=== PATIENT | female | born 1970 ===

== ENCOUNTER 2021-02-19 16:36 | Emergency (ER) | payer MEDICARE, SELFPAY ==
--- NOTE | ~2021-02-19 | XR_ITS ---
EXAMINATION: XR chest 2V DATE: 02/19/2021 17:52 INDICATION: Fever TECHNIQUE: PA and lateral views of the chest are obtained. COMPARISON: None available FINDINGS: The lungs are free of acute opacities. There is no pleural effusion or pneumothorax. The ca rdiomediastinal silhouette is normal. There is mild thoracic spondylosis. IMPRESSION: 1. No acute cardiopulmonary abnormality. Reviewed, dictated and finalized at location A.
--- NOTE | ~2021-02-19 | CT_ITS ---
EXAMINATION: CT brain wo con INDICATION: Fever and headache COMPARISON: None TECHNIQUE: Standard unenhanced head CT. The dose-length product (DLP) was 605.33 mGy-cm. The mA was a djusted according to patient size. Iterative reconstruction technique was employed. FINDINGS: There is no intracranial hemorrhage, acute infarction, or abnormal mass lesion. The ventric les are normal. There is no abnormal mass effect or midline shift. The [place]-white matter differentiat ion is normal. The basal cisterns are patent. The orbits are normal. There is mild mucosal thickening of the paranasal sinuses. IMPRESSION: 1. No acute intracranial abnormality. Reviewed, dictated and finalized at location A.
[2021-02-19 16:39] VITALS: BP 150/80; PULSE 110; RESP 18; TEMP 36.4; O2SAT 97
[2021-02-19 16:54] LABS: Basophils Absolute Auto 0.1 K/mm3 (0.0-0.1); Basophils Percent Auto 0.5 % (0.2-1.2); Eosinophils Absolute Auto 0.2 K/mm3 (0-0.3); Eosinophils Percent Auto 1.6 % (0-4.4); Hematocrit 44.4 % (37.0-47.0); Hemoglobin 15.2 g/dL (12.0-15.0); Immature Granulocyte Absolute 0.05 K/mm3 (0.00-0.031); Immature Granulocyte Percent A 0.3 % (0-0.5); Lymphocytes Absolute Auto 2.73 K/mm3 (0.9-3.2); Lymphocytes Percent Auto 18.4 % (18.3-44.2); Mean Corpuscular HGB Conc 34.2 g/dl (32-36); Mean Corpuscular Hemoglobin 31.7 pg (26-34); Mean Corpuscular Volume 92.7 fl (80-100); Mean Platelet Volume 9.4 fl (7.4-10.4); Monocytes Absolute Auto 0.8 K/mm3 (0.1-0.6); Monocytes Percent Auto 5.6 % (2.6-8.5); Neutrophils Absolute Auto 10.9 K/mm3 (1.3-6.7); Neutrophils Percent Auto 73.6 % (45.5-73.1); Platelet Count Result 306 k/mm3 (150-375); Red Blood Count 4.79 M/mm3 (4.2-5.4); White Blood Count 14.8 K/mm3 (4.5-10.0)
[2021-02-19 17:04] LABS: Alanine Aminotransferase 24 U/L (4-35); Alkaline Phosphatase 85 U/L (38-126); Anion Gap 12 mmol/L (8-16); Aspartate Amino Transferase 29 U/L (14-36); Bilirubin,Total 0.4 mg/dL (0.2-1.3); Blood Urea Nitrogen 12 mg/dL (7-17); Calcium 9.4 mg/dL (8.4-10.2); Carbon Dioxide 25 mmol/L (22-30); Chloride 105 mmol/L (98-107); Estimated CRCL calculation 80 ml/min; Estimated Glomerular Filt Rate > 60; Glucose 116 mg/dL (65-110); Potassium 3.7 mmol/L (3.4-5.0); Sodium 142 mmol/L (137-145)
[2021-02-19 17:09] LABS: Add Urine Microscopic? YES; Appearance Urine Clear (Clear); Bilirubin Urine Negative (Negative); Blood Urine Negative (Negative); Color Urine Yellow (Yellow); Glucose Urine UA Negative (Negative); Ketones Urine Negative (Negative); Leukocyte Esterase Ur Negative LEU/UL (Negative); Mucus Urine Rare /lpf; Nitrate Urine Negative (Negative); Protein Urine 1+ mg/dL (Negative); RBC Urine 0-2 /hpf (0-2); Specific Grav Ur 1.016 (1.001-1.035); Squamous Epithelial Cell Urine Few /hpf (Few); Urobilinogen Urine Negative mg/dL (<2.0); WBC Urine 0-3 /hpf
[2021-02-19 18:46] VITALS: BP 125/84; PULSE 92; RESP 18; TEMP 37.3; O2SAT 99
--- NOTE | 2021-02-19 19:39 | ED.GENADULT ---
HPI - General Adult General Chief complaint: Fever Stated complaint: fever, blurry vision Time Seen by Provider: 02/19/21 18:45 History of Present Illness HPI narrative: Patient is a 50-year-old female with past medical history significant for lupus, rheumatoid arthritis, fibromyalgia who comes to the ED today with several generalized symptoms. Patient reports that she has been feeling weird for the last 10 days. Symptoms started out as a cough, sore throat, pain below her right ear, subjective fevers, did have a temperature of 100.3 earlier today which is the highest it has been. Generalized body aches, headaches, nausea, generalized abdominal pain. Admits to diarrhea but this is chronic for her. She has been having intermittent blurry vision since this morning. Denies any diplopia or visual field deficits, notes he is having trouble reading her computer screen. Notes that she recently had similar symptoms other than the blurry vision for almost 10 months, she sought medical care but there is no known cause to her symptoms and they eventually went away a few months ago. She just moved to the [facility], does not have a primary care doctor or any specialist in this area yet. Denies any exposure to similar symptoms. She is Covid vaccinated. Related Data Allergies Allergy/AdvReac Type Severity Reaction Status Date / Time Sulfa (Sulfonamide Allergy Hives Verified 02/19/21 18:53 Antibiotics) sulfamethoxazole Allergy Hives Verified 02/19/21 18:53 [From Bactrim] trimethoprim [From Bactrim] Allergy Hives Verified 02/19/21 18:53 Review of Systems Constitutional: Constitutional: Reports as per HPI, Reports fever(s), Reports headache(s), Denies night sweats and Denies weakness Eyes: Eyes: Reports as per HPI, Denies blind spots, Reports blurry vision and Denies diplopia Cardiovascular: Cardiovascular: Denies chest pain, Denies edema, Denies leg edema, Denies dyspnea and Denies orthopnea Respiratory: Respiratory: Reports cough and Denies dyspnea Gastrointestinal: Gastrointestinal: Denies abdominal pain, Denies constipation, Denies diarrhea, Denies nausea and Denies vomiting Musculoskeletal: Musculoskeletal: Denies abnormal gait, Denies back pain, Denies numbness and Denies tingling Neurologic: Denies Abnormal speech present, Denies abnormal gait, Denies numbness, Denies tingling and Denies weakness Psychiatric: Psychiatric: Denies homicidal ideation and Denies suicidal ideation Exam Const: General: cooperative, healthy appearing, comfortable, no acute distress, well developed, alert, awake and Physically active Orientation/consciousness: patient oriented x3 Other: Pleasant, well-appearing, no distress HENMT: Head: normal to inspection, normocephalic and atraumatic Ears: external ears normal General nose exam: Normal external nose present Face and sinus: other Mouth: Yes Normal oral and palatal mucosa present Throat: posterior oropharynx normal Eyes: General: appearance normal, both eyes and all related structures Pupils: Equal, round and reactive pupils present EOM: EOMs intact bilaterally Neck: Neck: normal visual inspection, full ROM and no lymphadenopathy Chest: Chest palpation & inspection: normal inspection of the chest and no tenderness Resp: Effort & Inspection: normal respiratory effort and able to speak in complete sentences Auscultation: clear to auscultation bilaterally Cardio: Rate: regular rate Rhythm: regular rhythm GI: Inspection: normal to inspection GI Palp: No abdominal tenderness : General: Yes no CVA tenderness Back/Spine/Pelvis: Back: no CVA tenderness Skin: General skin exam: normal color and no rashes or lesions noted Lesions: no lesions Neuro: General: patient oriented x3, no focal motor deficits and CN's II-XI intact bilaterally Cranial nerves: Yes Equal, round and reactive pupils present Speech: No Abnormal speech present Gait exam (Neuro): Normal gait present Motor ex
[2021-02-19] MEDS: LACTATED RINGERS 1,000 ML 999 ML IV CONT (20:01)
[2021-02-19] MEDS: KETOROLAC 15 MG/ML VIAL (*BKC) IV PUSH (20:01)
--- NOTE | 2021-02-19 20:59 | PC.NURSE ---
Pt off floor in radiology
[2021-02-19 21:19] VITALS: BP 133/82; PULSE 81; RESP 18; O2SAT 97
[2021-02-19 22:15] VITALS: BP 142/88; PULSE 79; RESP 18; TEMP 36.9; O2SAT 97
[2021-02-20 18:35] LABS: SARS-CoV-2 RNA PCR Negative
== END 2021-02-19 22:20 | disposition home or self-care (01) ==
PROVIDERS: Physician Assistant Medical; Emergency Provider Emergency Medicine
DX: R05 Cough (principal); H53.8 Other visual disturbances; R52 Pain, unspecified; Z20.822 Contact with and (suspected) exposure to COVID-19; M06.9 Rheumatoid arthritis, unspecified; M79.7 Fibromyalgia
CPT/HCPCS: 36415; 70450; 71046; 80053; 81001; 81025; 85025; 87081; 87880; 96361; 96374; 96375; 99284; C9803; J1100; J1885; J7120; U0003; U0005